=== PATIENT | male | born 1990 | race Caucasian/White ===

== ENCOUNTER 2022-09-02 00:44 | Day surgery (SDC) | payer BC, SELFPAY ==
--- NOTE | 2022-08-19 14:54 | PC.NURSE ---
Report to the Outpatient Waiting Room, entrance under the green pavilion located off [facility], at time _0600_ on date _09/02/22_. Planned Procedure Time: _0730_. Time changes happen often and if your time is changed the preop area will call you the afternoon before. - You and your visitor will be asked to self-screen and do not enter if you have any COVID symptoms. - Only one visitor is requested with a max of two and NO children visitors are allowed at this time. - The patient visitor may be requested to leave or wait in car when not with patient due to distancing restrictions. - A mask is optional within the hospital at this time. Patients may have clear liquids (water, carbonated beverages, clear teas, apple juice) until 3 hours prior to surgery with a maximum of 20 ounces. - No food from midnight until time of surgery - Infants may have breast milk until 4 hours before surgery, formula 6 hours prior to surgery. - Children will be allowed to drink immediately following surgery. If applicable, please bring a bottle or sippy cup to assist with drinking. Juice, water, soda, and popsicles are readily available. For infants on formula, please bring formula the day of surgery. Pacifiers are allowed. Take the following medications with a SIP of water the morning of surgery: DO NOT STOP ANY OF YOUR OTHER PRESCRIPTION MEDICATIONS PRIOR TO SURGERY ?EXCEPT THE FOLLOWING Medications to discontinue per physician _Supplements stopped 3 days prior___ Date to take last dose Please no make-up, nail frisian, hairspray, perfume, deodorant, or body powder the day of surgery. No jewelry (including any body piercings) or valuables the day of surgery, leave them at home. Please take a shower or bath the night before, or the morning of, surgery with an antibacterial soap. Wear comfortable, loose fitting clothing. Children are encouraged to wear pajamas. - Jewelry must be removed prior to entering the operating room. Rings and piercings that are not removed may be cut off. - The hospital will not accept responsibility for valuables. - Please leave all valuables, including medications, at home the day of surgery. If you are going home after surgery, a licensed commercial truck driver must drive you home. - NO public transportation without another adult if you receive anesthesia. - We recommend that an adult stay with you for 24 hours following discharge. - We also recommend that you do not drive, make important decision, drink alcoholic beverages, or take any drugs that were not prescribed by your health care provider for at least 24 hours after your discharge time. For Pediatric surgeries, we recommend two adults accompany the child home. Follow any additional instructions given to you from your surgeon. If you or anyone in your household have experienced Covid symptoms in the past week, please notify your surgeon or the nurse liaison at the phone number below for possible testing. Telephone instructions given to _Patient___and asked if any additional questions and then verbalized understanding. Patient advised to call surgeon office or pre surgery nurse liaison [phone] if any additional questions.
[2022-08-19 15:02] VITALS: BMI 21.9
[2022-09-02] VITALS (9 sets, daily range): BP systolic 122–141; BP diastolic 61–105; PULSE 61–72; RESP 12–18; TEMP 36.1–36.6; O2SAT 99–100
[2022-09-02] MEDS: LACTATED RINGERS 1,000 ML 30 ML IV CONT ×2 (06:45→09:01)
[2022-09-02] MEDS: OXYMETAZOLINE HCL 0.05% NAS 15 ML BTL (*BKC) 1 SPRAY NASAL (06:45)
[2022-09-02] MEDS: ACETAMINOPHEN 500 MG TABLET 1000 MG PO (06:45)
--- NOTE | 2022-09-02 07:14 | WPDANESEPPF ---
Anes - Initial Pre Proc Eval Procedure: Operation Date: 09/02/22 07:30 Proposed Procedures p Septoplasty - Tayo Hodge MD s Bilateral Turbinate Reduction - Tayo Hodge MD Date/Time: 09/02/22 07:14 Surgeon: Tayo Hodge MD Pre Op Diagnosis: deviated septum, turbinate hypertrophy Patient Data Age: 32 Gender: M Height: 1.88 m Weight: 77.3 kg Last Vital Signs Temp 97.8 F 09/02/22 07:02 Pulse 71 09/02/22 07:02 Resp 14 09/02/22 07:02 BP 123/64 09/02/22 07:02 Pulse Ox 100 09/02/22 07:02 O2 Del Method Room Air 09/02/22 07:02 Allergies Allergy/AdvReac Type Severity Reaction Status Date / Time No Known Allergies Allergy Verified 09/02/22 07:06 Home Medications Medication Instructions Recorded Confirmed Type B complex-zinc 1 tablet BYMOUTH DAILY 08/19/22 08/19/22 History cholecalciferol (vitamin D3) 1 tablet PO DAILY 08/19/22 08/19/22 History clomiphene citrate 1 tablet PO HS 08/19/22 08/19/22 History finasteride 5 mg tablet 5 mg PO HS 08/19/22 08/19/22 History Patient hx anesthesia problems: none Family hx anesthesia problems: none Results Review: All pre-operative results and documents have been reviewed as part of the pre-operative evaluation. FORMERLY [facility], [facility]–1983 Social History Social History Smoking status: Never smoker Alcohol intake: current Drinks per week: 2 Substance use: never Substance use type: does not use Living arrangements: alone Spiritual care concerns: No Anes - Eval Final PreProcedure Day of Procedure 09/02/22 07:14 Patient weight: normal Heart: regular rate and rhythm Lungs: clear to auscultation Airway: Mallampati scale class II Neurological: alert and oriented Last oral intake: >/= 8 hours ASA classification: I Emergent: no Anesthetic plan: proceed Anesthesia type and monitoring: general ETT and standard monitoring Results Review: All pre-operative results and documents have been reviewed as part of the pre-operative evaluation. Informed Consent: The patient's anesthetic plan and its attendant risks and benefits were discussed with the patient/family/POA. Questions were solicited and answers provided to the satisfaction of the patient/family/POA.
--- NOTE | 2022-09-02 07:16 | PM.IMHP ---
H&P: HPI History of Present Illness Date/Time: 09/02/22 07:16 Chief Complaint: nasal dyspnea Narrative: nasal dyspnea, no sinusitis Review of Systems Review of Systems: All systems reviewed & are unremarkable except as noted in HPI and below PMFSH Social History Social History Smoking status: Never smoker Alcohol intake: current Drinks per week: 2 Substance use: never Substance use type: does not use Living arrangements: alone Spiritual care concerns: No Meds Home Medications and Allergies Home Medications Medication Instructions Recorded Confirmed Type B complex-zinc 1 tablet BYMOUTH DAILY 08/19/22 08/19/22 History cholecalciferol (vitamin D3) 1 tablet PO DAILY 08/19/22 08/19/22 History clomiphene citrate 1 tablet PO HS 08/19/22 08/19/22 History finasteride 5 mg tablet 5 mg PO HS 08/19/22 08/19/22 History Allergies Allergy/AdvReac Type Severity Reaction Status Date / Time No Known Allergies Allergy Verified 09/02/22 07:06 Vital Signs Vital Signs - 24 hr 09/02/22 07:02 Temperature 36.6 C Pulse Rate 71 Respiratory Rate 14 Blood Pressure 123/64 Pulse Oximetry 100 Oxygen Delivery Room Air Exam Narrative: right nasal septal deviation ,bilateral inf turb hypetrophy, rest of exam wnl Assessment and Plan Assessment and plan (1) Deviated septum: Code(s): J34.2 - Deviated nasal septum Status: Acute Plan Here for septoplasty and turbinoplasty. r/b/a reviewed, pt understands and agrees to proceed. refer to outpt H&P for full details.
--- NOTE | 2022-09-02 07:18 | WPDHPUPDATE1 ---
History and Physical Update Update Date/Time: 09/02/22 07:18 History and Physical has been reviewed, including an updated exam of the patient. There are NO changes in the patient's condition. Risks, benefits, and alternatives have been discussed and questions answered. Patient agrees to proceed with procedure.
[2022-09-02] MEDS: ceFAZolin 2 GM/D5W 50 ML 2 GM/50 ML BAG IVPB (07:28)
[2022-09-02] MEDS: MUPIROCIN 2% OINT 22 GM TUBE 1 APPLIC EACH NARE (08:23)
[2022-09-02] MEDS: LIDO 1%/EPINEPHRINE 1:100,000 20 ML VIAL INFILTRATE (08:28)
--- NOTE | 2022-09-02 08:32 | P.OP_ITS ---
Procedure Note - Detailed Date of Procedure 09/02/22 Pre-op Diagnosis deviated septum, turbinate hypertrophy Post-op Diagnosis Same Procedure Performed Septoplasty, turbinoplasty Surgeon Tayo Hodge MD Anesthesia General Indications Nasal dyspnea Findings Right septal deviation, bilateral inferior turbinate hypertrophy Description of Procedure After obtaining informed consent and proper site verification the patient was brought to the operating room and placed on the operating table in the supine position. They were placed under general endotracheal anesthesia by the anesthesia provider. The patient was then draped in standard fashion for septoplasty and turbinoplasty. A timeout was performed and the correct patient and procedure were verified. The nasal cavity was injected with 1% lidocaine with 1-100,000 epinephrine and packed with afrin-soaked cottonoid pledgets. ? Attention was then directed to the nasal septum. A hemitransfixion incision was made in the left caudal septum and a mucoperichondrial flap was elevated in the usual fashion. The flap was elevated under endoscopic visualization and the remainder of the case was performed with endoscopic assistance. Using a D- knife, an incision was made through the cartilaginous septum with care to preserve the appropriate caudal and dorsal ?L-strut? of cartilage. The cartilage was then disarticulated from the bony-cartilaginous junction and the deviated cartilage was removed. Further deviated bone and cartilage was removed from the maxillary crest and posterior bony septum with care to avoid injury to the mucoperichondrial flap using a combination of dissection and Peter- Evon forceps. Once this was completed, the hemitransfixion incision was closed using simple interrupted 4-0 chromic suture. A quilting stitch to reappr oximate the mucoperichondrial flaps was then placed using 4-0 plain gut suture on a Brent needle. ? Next attention was directed to the turbinates. Using a 0? telescope and 2mm turbinate blade microdebrider, a stab incision was made in the anterior face of the turbinate and dissection was carried posterior to perform submucosal resection. Next the turbinate was outfractured using a blunt instrument. A similar procedure was then performed on the right-hand side without difficulty. Joe splints covered in mupirocin ointment were placed in the nasal cavity and secured to the membranous septum using a 3-0 Prolene suture. ?The patient was awakened from general anesthesia extubated in the operating room, and transported to the recovery room in stable condition without complication. Estimated Blood Loss 20 Drains No Packing Yes (joe splints) Pathology None sent Complications No immediate complications Condition Stable Disposition PACU
[2022-09-02] MEDS: oxyCODONE HCL (*CRX) 5 MG TAB IR PO (09:35)
== END 2022-09-02 10:34 | disposition home or self-care (01) ==
PROVIDERS: Visit Provider Otolaryngology
PROC: (CPT 30520; principal; 2022-09-02 07:30)
PROC: (CPT 30520; 2022-09-02 07:30)
DX: J34.2 Deviated nasal septum (principal); J34.3 Hypertrophy of nasal turbinates
CPT/HCPCS: 30520; 30140; A9270; J0690; J1100; J1170; J2250; J2405; J2704; J2710; J7120